=== PATIENT | female | born 2005 | race African-American/Black ===

== ENCOUNTER 2024-07-07 19:16 | Emergency (ER) | payer OTHER ==
[~2024-07-07] VITALS: Ht 154.9 cm; Wt 103.0 kg
[2024-07-07 19:22] VITALS: PULSE 90; RESP 16; TEMP 98.4
[2024-07-07 20:50] VITALS: BP 121/83; PULSE 87; RESP 20; O2SAT 99
== END 2024-07-07 20:51 | disposition home or self-care (01) ==
LOC: FSED 19:28
DX: R05.9 Cough, unspecified (principal); B34.9 Viral infection, unspecified; R07.0 Pain in throat; R51.9 Headache, unspecified; R09.81 Nasal congestion; Z11.52 Encounter for screening for COVID-19
CPT/HCPCS: 0223U; 83518 ×2; 87400; 99282